=== PATIENT | female | born 1950 | race Caucasian/White ===

== ENCOUNTER 2020-02-06 07:47 | Day surgery (SDC) | payer OTHER ==
[~2020-02-06] VITALS: Ht 152.4 cm; Wt 49.5 kg
[~2020-02-06 07:47] MED LIST: ALEN70 PO; Aspirin EC81 MG; Biotin10 MG PO; CALCAVITD PO; CHOL10002; FISH1000 PO; Multiple Vitam1 EAC1 PO
== END 2020-02-06 09:55 | disposition home or self-care (01) ==
LOC: ORSCSDS 07:47
PROVIDERS: Internal Medicine Gastroenterology
PROC: 0DJD8ZZ Inspection of Lower Intestinal Tract, Via Natural or Artificial Opening Endoscopic (ICD-10-PCS; principal; 2020-02-06 09:00)
DX: Z12.11 Encounter for screening for malignant neoplasm of colon (principal); Z86.010 Personal history of colon polyps; Z80.0 Family history of malignant neoplasm of digestive organs; E78.5 Hyperlipidemia, unspecified; Z87.891 Personal history of nicotine dependence; Z79.82 Long term (current) use of aspirin; Z79.899 Other long term (current) drug therapy
CPT/HCPCS: J0330; J0461; J2405; J2704; J7120